=== PATIENT | male | born 1955 | race Caucasian/White ===

== ENCOUNTER 2017-06-02 07:47 | Day surgery (SDC) | payer OTHER ==
[2017-06-02] MEDS ORDERED: PROPOFOL 200 MG/20 ML VIAL IVP ONE (07:55)
[2017-06-02] MEDS ORDERED: NS 500 ML IV ONE (07:55)
[2017-06-02] MEDS ORDERED: BENZOCAINE UNIT DOSE SPRAY HURRICAINE MM ONE (07:55)
[2017-06-02] MEDS ORDERED: fentaNYL 100 MCG/2 ML INJ IVP ONE (07:55)
[2017-06-02] MEDS ORDERED: MIDAZOLAM 2 MG/2 ML VIAL IVP ONE (07:55)
--- NOTE | 2017-06-02 08:09 | CPEKG ---
Heart Rate: 99 RR Interval: 606 QRSD Interval: 88 QT Interval: 384 QTC Interval: 493 QRS [place]: 69 T Wave [place]: 30 EKG Severity - ABNORMAL ECG - EKG Impression: ATRIAL FIBRILLATION, V-RATE 68-146 EKG Impression: BORDERLINE PROLONGED QT INTERVAL Electronically Signed By: Merlin Parra 02-Jun-2017 14:50:37
[2017-06-02 08:33] LABS: INR 1.34 (0.83-1.16); PROTIME(PATIENT) 16.6 SEC (12.0-15.0)
[2017-06-02 08:49] LABS: ANION GAP 13 mEq/L (8-16); CALCIUM 9.3 mg/dL (8.5-10.4); CARBON DIOXIDE 22 mEq/l (22-31); CHLORIDE 107 mEq/L (97-110); CREATININE 1.1 mg/dL (0.7-1.3); GLOMERULAR FILTRATION RATE > 60; GLUCOSE 123 mg/dL (70-100); MAGNESIUM 1.8 mg/dL (1.6-2.3); POTASSIUM 4.6 mEq/L (3.5-5.2); SODIUM 142 mEq/L (134-144)
--- NOTE | 2017-06-02 08:49 | PDANEPAE ---
ANE History of Present Illness 62 year old male w/ PMHx of HTN, pre-diabetes (on Metformin), obesity, JACOB ( utilizes oral appliance), GERD (on PPI) with recently diagnosed paroxysmal atrial fibrillation presents for ELISEO w/ cardioversion. ANE Past Medical History - Cardiovascular History Hx Hypertension: Yes Hx Arrhythmias: Yes Hx Chest Pain: No Hx Coronary Artery / Peripheral Vascular Disease: No Hx CHF / Valvular Disease: Yes Hx Palpitations: No Cardiovascular History Comment: Paroxysmal atrial fibrillation, moderate mitral regurgitation, HTN - Pulmonary History Hx COPD: No Hx Asthma/Reactive Airway Disease: No Hx Recent Upper Respiratory Infection: No Hx Oxygen in Use at Home: No Hx Sleep Apnea: Yes Pulmonary History Comment: Has JACOB and utilizes an oral appliance. Patient's bed partner reports patient still with apnea. - Neurologic History Hx Cerebrovascular Accident: No Hx Seizures: No Hx Dementia: No - Endocrine History Hx Diabetes: No Hypothyroid: No Hyperthyroid: No Obesity: yes Endocrine History Comment: Patient with pre-diabetes - Renal History Renal History Comment: History of renal stones s/p recent lithotripsy. - Liver History Hx Hepatic Disorders: No - Neurological & Psychiatric Hx Hx Neurological and Psychiatric Disorders: No - GI History GERD: moderate (Known GERD treated with PPI) - Chronic Pain History Chronic Pain: No ANE Review of Systems - Exercise capacity Exercise capacity: >=4 METS ANE Patient History - Allergies Allergies/Adverse Reactions: No Known Allergies Allergy (Unverified 06/02/17 07:52) - Home Medications Home medications: home medication list seen and reviewed - NPO status NPO Status: no food or drink >8 hours - Anes Hx Anes Hx: no prior problems - Smoking Hx Smoking Status: Never smoked - Alcohol Use Alcohol Use: Rarely - Family Anes Hx Family Anes Hx: none, neg - N/A ANE Labs/Vital Signs - Labs Result Diagrams: 06/02/17 08:15 - Vital Signs Vital Signs: reviewed preoperatively; see RN documention for details Height: 182.88 cm Weight: 120.202 kg ANE Physical Exam - Airway Neck exam: FROM Mallampati Score: Class 2 Mouth exam: poor dentition Mouth image: 1 - #10 is an implant. Many inferior teeth missing. 2 - Missing - Pulmonary Pulmonary: no respiratory distress - Cardiovascular Cardiovascular: irregularly irregular - ASA Status ASA Status: III ANE Anesthesia Plan Anesthesia Plan: GA with mask
[2017-06-02] MEDS ORDERED: ENOXAPARIN 120 MG/0.8 ML SYR SC ONE (09:45)
[2017-06-02] MEDS ORDERED: LOSARTAN POTASSIUM 50 MG TAB PO ONE (09:45)
[2017-06-02] MEDS ORDERED: CARVEDILOL 6.25 MG TAB PO ONE (09:45)
[2017-06-02] MEDS ORDERED: PROPOFOL 200 MG/20 ML VIAL ONE (14:04)
[2017-06-02] MEDS ORDERED: ATROPINE SULFATE 1 MG/10 ML SYR ONE (14:07)
--- NOTE | 2017-06-02 14:38 | CPEKG ---
Heart Rate: 55 RR Interval: 1091 P-R Interval: 156 QRSD Interval: 92 QT Interval: 448 QTC Interval: 429 P [place]: 54 QRS [place]: 54 T Wave [place]: 70 EKG Severity - OTHERWISE NORMAL ECG - EKG Impression: SINUS RHYTHM EKG Impression: ATRIAL PREMATURE COMPLEX EKG Impression: NORMAL SINUS RHYTHM HAS REPLACED ATRIAL FIBRILLATION NOTED ON PRIOR ECG Electronically Signed By: Merlin Parra 02-Jun-2017 14:51:00
--- NOTE | 2017-06-02 14:41 | POSTANESTH ---
Post Anesthetic Evaluation Cardiovascular Status: Normal, Stable Respiratory Status: Normal, Stable Level of Consciousness/Mental Status: Can Participate in Eval Pain Control: Adequate, Prn Tx Ordered Nausea/Vomiting Control: Adequate, Prn Tx Ordered Complications Possibly Related to Anesthesia: None Noted
--- NOTE | 2017-06-02 15:41 | PDTEE1 ---
ELISEO Cardioversion Procedure Procedure: Electrical Cardioversion, Transesophageal Echo Indications: Atrial Fibrillation Consent: Signed and in Chart Anticoagulation: Xarelto Procedural Details: Patient presented to [facility] outpatient today for possible ELISEO with cardioversion. There was some confusion about Xarelto therapy, and about 36 hours ago, this therapy was stopped. Given this detail, and the pending need for ELISEO with possible cardioversion, Dr. Jatinder De La Rosa dosed the patient with weight appropriate Lovenox therapy, and rescheduled the patient in the early afternoon. Consents were resigned by myself for procedures (ELISEO with possible cardioversion ). Risks and benefits of the procedures were discussed with patient and . I also discussed that if there was any suspicious for thrombus, the cardioversion would not be performed. Patient was dosed with hurricaine spray for local anesthetic and the ELISEO probe was placed without difficulty with standard views obtained. Preliminary report: low normal LVEF (50%) with borderline global hypokinesis. Severe biatrial dilation was noted without "smoke" noted No thrombus to the left atrial appendage Moderate to severe mitral regurgitation Moderate tricuspid regurgitation Grossly normal aortic (trileaflet) and pulmonic valves Given the absence of thrombus, we opted to proceed with cardioversion A single shock (synchronized) with 200J was given with successful conversion from atrial fibrillation to normal sinus rhythm. No complications were appreciated. The patient tolerated the procedure well. I spoke with the patient's about need for follow up ECG and further discussion about mitral and tricuspid valve pathology Synchronized cardioversion attempt #1: 200J Results: Normal sinus rhythm Conclusions: Successful ELISEO Cardioversion Conclusion Comment: There is pathology to the mitral and tricuspid valves that need to be reassessed in the outpatient setting. Further discussion about possible surgical intervention to these valves is needed.
== END 2017-06-02 15:19 | disposition home or self-care (01) ==
LOC: FCATH 07:47
PROVIDERS: ATTEND Internal Medicine Cardiovascular Disease
PROC: 5A2204Z Restoration of Cardiac Rhythm, Single (ICD-10-PCS; principal; 2017-06-02)
PROC: B246ZZ4 Ultrasonography of Right and Left Heart, Transesophageal (ICD-10-PCS; principal; 2017-06-02)
DX: I48.0 Paroxysmal atrial fibrillation (principal); I34.0 Nonrheumatic mitral (valve) insufficiency; I36.1 Nonrheumatic tricuspid (valve) insufficiency; I10 Essential (primary) hypertension; G47.33 Obstructive sleep apnea (adult) (pediatric); R73.03 Prediabetes; E66.9 Obesity, unspecified; K21.9 Gastro-esophageal reflux disease without esophagitis; Z87.442 Personal history of urinary calculi; Z80.42 Family history of malignant neoplasm of prostate; Z68.35 Body mass index [BMI] 35.0-35.9, adult
CPT/HCPCS: J0461; J1650; J2250; J2704

== ENCOUNTER 2018-02-04 08:28 | Day surgery (SDC) | payer OTHER ==
[2018-02-04] MEDS ORDERED: ATROPINE SULFATE 1 MG/10 ML SYR IVP ONE (08:32)
[2018-02-04] MEDS ORDERED: NS 1,000 ML IV ONE (08:32)
--- NOTE | 2018-02-04 08:46 | CPEKG ---
Heart Rate: 92 RR Interval: 652 QRSD Interval: 94 QT Interval: 392 QTC Interval: 485 QRS [place]: 61 T Wave [place]: -58 EKG Severity - ABNORMAL ECG - EKG Impression: ATRIAL FIBRILLATION, V-RATE 69-134 EKG Impression: BORDERLINE PROLONGED QT INTERVAL Electronically Signed By: Georgiana Ayers 04-Feb-2018 12:27:54
[2018-02-04] MEDS ORDERED: PROPOFOL 200 MG/20 ML VIAL ONE (09:36)
[2018-02-04] MEDS ORDERED: LIDOCAINE 2% 100 MG/5 ML SYR ONE (09:36)
--- NOTE | 2018-02-04 09:42 | PDANEPAE ---
ANE Past Medical History - Cardiovascular History Hx Hypertension: Yes Hx Arrhythmias: Yes Hx Chest Pain: No Hx Coronary Artery / Peripheral Vascular Disease: No Hx CHF / Valvular Disease: Yes Hx Palpitations: No Cardiovascular History Comment: Paroxysmal atrial fibrillation, moderate mitral regurgitation, HTN - Pulmonary History Hx COPD: No Hx Asthma/Reactive Airway Disease: No Hx Recent Upper Respiratory Infection: No Hx Oxygen in Use at Home: No Hx Sleep Apnea: Yes Pulmonary History Comment: Has JACOB and utilizes an oral appliance. Patient's bed partner reports patient still with apnea. - Neurologic History Hx Cerebrovascular Accident: No Hx Seizures: No Hx Dementia: No - Endocrine History Hx Diabetes: No Endocrine History Comment: Patient with pre-diabetes - Renal History Renal History Comment: History of renal stones s/p recent lithotripsy. - Liver History Hx Hepatic Disorders: No - Neurological & Psychiatric Hx Hx Neurological and Psychiatric Disorders: No - Chronic Pain History Chronic Pain: No ANE Review of Systems Review of Systems: ANE Patient History - Allergies Allergies/Adverse Reactions: No Known Allergies Allergy (Verified 02/04/18 08:56) - Home Medications Home Medications: Allopurinol 100 mg PO 06/02/17 [Last Taken 02/04/18 07:00] Coreg 6.25 mg PO BID 06/02/17 [Last Taken 02/04/18 07:00] IRON 65 mg PO DAILY 06/02/17 [Last Taken 02/03/18 21:00] Losartan Potassium 50 mg PO DAILY 06/02/17 [Last Taken 02/03/18 21:00] Metformin HCl 850 mg PO BID 06/02/17 [Last Taken 02/03/18 21:00] Multivitamin 1 PO DAILY 06/02/17 [Last Taken 02/04/18 07:00] Pantoprazole Sodium 40 mg PO DAILY 06/02/17 [Last Taken 02/03/18 07:00] Tamsulosin HCl 0.4 mg PO DAILY 06/02/17 [Last Taken 02/03/18 21:00] Vitamin D3 1,000 units PO DAILY 06/02/17 [Last Taken 02/03/18 21:00] Xarelto 10 mg PO DAILY 06/02/17 [Last Taken 02/04/18 07:00] Benzonatate 200 mg PO TID 02/04/18 [Last Taken 02/04/18 07:00] Hydrochlorothiazide 12.5 mg PO 02/04/18 [Last Taken 02/03/18 08:00] Potassium Citrate [Potassium Citrate ER] 15 meq PO BID 02/04/18 [Last Taken 07:00] - Smoking Hx Smoking Status: Never smoked ANE Labs/Vital Signs - Vital Signs Height: 185 cm Weight: 115 kg ANE Physical Exam - Airway Neck exam: FROM Mallampati Score: Class 3 Mouth exam: normal dental/mouth exam - Pulmonary Pulmonary: no respiratory distress - Cardiovascular Cardiovascular: regular rate and rhythym - ASA Status ASA Status: III ANE Anesthesia Plan Total IV Anesthesia: Yes
[2018-02-04] MEDS ORDERED: PROPOFOL/EMULSION 500 MG/50 ML BOTTLE IV ONE (09:46)
--- NOTE | 2018-02-04 09:49 | PDHPUP ---
History & Physical Update H&P update statement: This history and physical update is based on an assessment of the patient which was completed after admission or registration (within 24 hours), but prior to the surgery/procedure. H&P update: H&P reviewed & patient examined, no change in patient's condition since H&P completed
--- NOTE | 2018-02-04 10:21 | PDTEE1 ---
ELISEO Cardioversion Procedure Procedure: electrical cardioversion Indications: atrial fibrillation Consent: signed and in chart Anticoagulation: xarelto Procedural Details: Pads were placed in anterior-posterior position. ELISEO probe was advanced and standard images obtained. There is no evidence of left atrial or left atrial appendage thrombus. Synchronized cardioversion attempt #1: 200J Results: normal sinus rhythm Conclusions: successful ELISEO cardioversion
--- NOTE | 2018-02-04 10:29 | POSTANESTH ---
Post Anesthetic Evaluation Cardiovascular Status: Normal, Stable Respiratory Status: Similar to Pre-op Cond. Level of Consciousness/Mental Status: Mildly Sleepy, Arousable Pain Control: Adequate, Prn Tx Ordered Nausea/Vomiting Control: Adequate, Prn Tx Ordered Complications Possibly Related to Anesthesia: None Noted
--- NOTE | 2018-02-04 10:38 | CPEKG ---
Heart Rate: 70 RR Interval: 857 P-R Interval: 184 QRSD Interval: 96 QT Interval: 404 QTC Interval: 436 P [place]: 62 QRS [place]: 51 T Wave [place]: 31 EKG Severity - NORMAL ECG - EKG Impression: SINUS RHYTHM Electronically Signed By: Georgiana Ayers 04-Feb-2018 12:27:30
--- NOTE | 2018-02-04 15:40 | ECHO ---
[email or web address] [id number] Main: [phone] Fax: Transesophageal Echocardiography Name: ARIK WARREN MR#: [id number] Study Date: 02/04/2018 Study Time: 09:55 AM Date of : 1955 Age: 62 year(s) Height: 185 cm (72.83 in.) Weight: 114 kg (251.32 lb.) BSA: 2.37 m2 Gender: Male Examination: ELISEO Indication: Pre Cardioversion Image Quality: Contrast: Requested by: Jeff De La Rosa Heart Rate: Rhythm: Atrial fibrillation BP: 120 mmHg/100 mmHg Procedure Staff Die Developer: Jairon Reese RDCS Reading Physician: Jeff De La Rosa MD Requesting Provider: ELISEO Exam Details Conclusions: Normal global systolic LV function. The ejection fraction is visually estimated to be 55 %. No regional wall motion abnormality. The rhythm is atrial fibrillation.. The left atrium is moderately dilated. There is bi-directional bowing that change with respirations. An agitated bubble study was performed with no evidence of shunting.. The right atrium is mildly to moderately dilated. There is bileaflet mitral valve prolapse. There is a degenerative appearance to the mitral valve leaflets. There is moderate to severe mitral regurgitation with multiple jets noted.. Mild to moderate tricuspid valve regurgitation. Proceeded with successful elective DC cardioversion.. Measurements: Chambers Valvular Assessment AV/MV Valvular Assessment TV/PV Normal Normal Normal Name Value Range Name Value Range Name Value Range Visual EF: 55 % Additional Measurements: Chambers Name Value Patient: ARIK WARREN Study Date: 02/04/2018 Page 1 of 2 09:55 AM LADs Lon.5 cm LA Area: 28.3 cm2 LA Volume: 99 ml LA Volume Index: 41.8 ml/m2 Findings: Left Ventricle: Normal global systolic LV function. The ejection fraction is visually estimated to be 55 %. No regional wall motion abnormality. The rhythm is atrial fibrillation.. Right Ventricle: Normal size right ventricle. Normal RV function. Left Atrium: The left atrium is moderately dilated. There is bi-directional bowing that change with respirations. An agitated bubble study was performed with no evidence of shunting.. Right Atrium: The right atrium is mildly to moderately dilated. Mitral Valve: There is bileaflet mitral valve prolapse. There is a degenerative appearance to the mitral valve leaflets. There is moderate to severe mitral regurgitation with multiple jets noted.. Aortic Valve: The aortic valve is tri-leaflet. The aortic valve is normal in appearance and function. Tricuspid Valve: Mild to moderate tricuspid valve regurgitation. Pulmonic Valve: Trivial to mild pulmonic valve regurgitation. Aorta: The aorta is normal. Pericardium: No pericardial effusion. Exam Comments: Proceeded with successful elective DC cardioversion.. l1n (No Signature Object) Patient: ARIK WARREN Study Date: 02/04/2018 Page 2 of 2 09:55 AM [id number]
== END 2018-02-04 12:58 | disposition home or self-care (01) ==
LOC: FCATH 08:28
PROVIDERS: ATTEND Internal Medicine Cardiovascular Disease
PROC: 5A2204Z Restoration of Cardiac Rhythm, Single (ICD-10-PCS; principal; 2018-02-04)
PROC: B245ZZ4 Ultrasonography of Left Heart, Transesophageal (ICD-10-PCS; principal; 2018-02-04)
DX: I48.0 Paroxysmal atrial fibrillation (principal); R55 Syncope and collapse; R42 Dizziness and giddiness; R94.31 Abnormal electrocardiogram [ECG] [EKG]; I34.0 Nonrheumatic mitral (valve) insufficiency; I36.1 Nonrheumatic tricuspid (valve) insufficiency; I10 Essential (primary) hypertension; E78.5 Hyperlipidemia, unspecified; R73.03 Prediabetes; G47.33 Obstructive sleep apnea (adult) (pediatric); K21.9 Gastro-esophageal reflux disease without esophagitis; Z79.01 Long term (current) use of anticoagulants; Z87.442 Personal history of urinary calculi
CPT/HCPCS: J0461; J2001; J2704

== ENCOUNTER 2018-02-25 07:47 | Inpatient (IN) | payer OTHER ==
[2018-02-28] MEDS ORDERED: NOREPINEPHRINE BITARTRATE 16 MG in NS 250 ML IV ONE (06:11)
[2018-02-28] MEDS ORDERED: SODIUM BICARBONATE 20 MEQ, LIDOCAINE 1% 10 ML in NORMOSOL-R 1,000 ML MISC ONE (06:11)
[2018-02-28] MEDS ORDERED: AMINOCAPROIC ACID 5 GM/20 ML VIAL IV ONE (06:11)
[2018-02-28] MEDS ORDERED: INSULIN REGULAR HUMAN 100 UNIT in NS 100 ML IV ONE (06:11)
[2018-02-28] MEDS ORDERED: PHENYLEPHRINE HCL 50 MG in NS 250 ML IV ONE (06:11)
[2018-02-28] MEDS ORDERED: MANNITOL 25% 12.5 GM/50 ML VIAL IVP ONE (06:37)
[2018-02-28] MEDS ORDERED: ceFAZolin 2 GM/SWFI 2 GM/20 ML SYR IVP ONE (09:06)
[2018-02-28] MEDS ORDERED: CITRATE DEXTROSE SOLN 500 ML BAG MISC ONE (09:06)
[2018-02-28] MEDS ORDERED: MUPIROCIN 2% 22 GM OINT NS ONE (09:06)
[2018-02-28] MEDS ORDERED: niCARdipine/NACL 200 ML IV ONE (09:06)
[2018-02-28] MEDS ORDERED: LR 1,000 ML IV ONE (09:12)
[2018-02-28] MEDS ORDERED: PROTAMINE SULFATE 50 MG/5 ML VIAL IVP ONE ×2 (09:20→13:44)
[2018-02-28] MEDS ORDERED: CALCIUM CHLORIDE 1 GM/10 ML INJ ONE ×2 (09:21→09:23)
[2018-02-28] MEDS ORDERED: HEPARIN 10,000 UNIT/10 ML MDV (1,000 UNIT/ML) ONE ×2 (09:21→09:23)
[2018-02-28] MEDS ORDERED: NA BICARBONATE 50 MEQ/50 ML VIAL ONE (09:21)
[2018-02-28] MEDS ORDERED: DOPamine/DEXTROSE/250 ML BAG IV ONE (09:21)
[2018-02-28] MEDS ORDERED: MILRINONE/DEXTROSE/100 ML BAG IV ONE (09:21)
[2018-02-28] MEDS ORDERED: niCARdipine/NACL/200 ML BAG IV ONE (09:22)
[2018-02-28] MEDS ORDERED: ADENOSINE 6 MG/2 ML VIAL ONE (09:22)
[2018-02-28] MEDS ORDERED: AMIODARONE HCL 150 MG/3 ML VIAL ONE ×2 (09:22→09:23)
[2018-02-28] MEDS ORDERED: ceFAZolin 1 GM VIAL ONE (09:22)
[2018-02-28] MEDS ORDERED: CITRATE DEXTROSE SOLN 500 ML BAG ONE (09:23)
[2018-02-28] MEDS ORDERED: ALBUMIN 5% 250 ML BOTTLE IV ONE (09:23)
[2018-02-28] MEDS ORDERED: LIDOCAINE 2% 100 MG/5 ML SYR ONE (09:23)
[2018-02-28] MEDS ORDERED: MAGNESIUM SULFATE 1 GM/2 ML VIAL ONE (09:24)
[2018-02-28] MEDS ORDERED: methylPREDNISolone SOD SUCC 1 GM/8 ML VIAL ONE (09:24)
[2018-02-28] MEDS ORDERED: MIDAZOLAM 2 MG/2 ML VIAL IVP ONE (11:26)
--- NOTE | 2018-02-28 11:26 | PDANEPAE ---
ANE History of Present Illness mvr,tvr, maze ANE Past Medical History - Cardiovascular History Hx Hypertension: Yes Hx Arrhythmias: Yes Hx Chest Pain: No Hx Coronary Artery / Peripheral Vascular Disease: Yes Hx CHF / Valvular Disease: Yes Hx Palpitations: No Cardiovascular History Comment: CATH 02/25/18. PAF - FOUND IN PREOP WITH LITHOTRIPSY IN 2017. HTN. CAD. MULTIVALVULAR INSUFF. CARDIOVERSION 05/2017 AND 02/04/18 - Pulmonary History Hx COPD: No Hx Asthma/Reactive Airway Disease: No Hx Recent Upper Respiratory Infection: No Hx Oxygen in Use at Home: No Hx Sleep Apnea: Yes Sleep Apnea Screening Result - Last Documented: Positive Pulmonary History Comment: JACOB POSITIVE USES CPAP- INSTRUCTED PT TO BRING DOS - Neurologic History Hx Cerebrovascular Accident: No Hx Seizures: No Hx Dementia: No - Endocrine History Hx Diabetes: Yes Endocrine History Comment: TYPE 2- METFORMIN - Renal History Hx Renal Disorders: Yes Renal History Comment: HX OF KIDNEY STONES WITH LITHOTRIPSY X2 - Liver History Hx Hepatic Disorders: No - Neurological & Psychiatric Hx Hx Neurological and Psychiatric Disorders: No - Cancer History Hx Cancer: No - Congenital Disorder History Hx Congenital Disorders: No - GI History Hx Gastrointestinal Disorders: Yes Gastrointestinal History Comment: GERD - Other Health History Other Health History: NONE - Chronic Pain History Chronic Pain: No - Surgical History Prior Surgeries: CATH 02/25/18. CARDIOVERSION 02/04/18 AND 05/2017. RIGHT HIP RESURFACING 2007. LITHOTRIPSY 2006 AND 2016. TONSILLECTOMY 1957 ANE Review of Systems Review of Systems: - Exercise capacity METS (RN): 3 METS ANE Patient History - Allergies Allergies/Adverse Reactions: No Known Allergies Allergy (Verified 02/25/18 12:36) - Home Medications Home Medications: Allopurinol [Allopurinol 100 MG (*)] 100 mg PO DAILY 06/02/17 [Last Taken 08:00] Carvedilol [Coreg (*)] 6.25 mg PO BIDMEAL 06/02/17 [Last Taken 02/27/18 20:00] Cholecalciferol Vit D3 [Vitamin D3 2000 units tab (OTC)] 2,000 units PO DAILY [Last Taken 02/27/18 20:00] Ferrous Sulfate [Ferrous Sulf 325 MG (*)] 325 mg PO DAILY 06/02/17 [Last Taken 02/27/18 20:00] Losartan Potassium [Cozaar 50 mg (*)] 50 mg PO DAILY 06/02/17 [Last Taken 20:00] Multivitamins [Multivitamin (*)] 1 each PO DAILY 06/02/17 [Last Taken 02/27/18 08:00] Pantoprazole Sodium [Protonix 40mg (*)] 40 mg PO DAILY 06/02/17 [Last Taken 04/11 08:00] Rivaroxaban [Xarelto 10mg (*)] 10 mg PO DAILY 06/02/17 [Last Taken 02/22/18] metFORMIN HCL [Glucophage 850 mg (*)] 850 mg PO BIDMEAL 06/02/17 [Last Taken 11/11] Potassium Citrate [Potassium Citrate ER] 15 meq PO BIDMEAL 02/04/18 [Last Taken 02/27/18 20:00] Hydrochlorothiazide [HCTZ (*)] 12.5 mg PO DAILY 02/23/18 [Last Taken 02/24/18 12 :00] Sildenafil Citrate [Viagra] 100 mg PO DAILY PRN 02/23/18 [Last Taken 02/04/18 22 :00] Aspirin [Aspirin 325 mg (*)] 325 mg PO DAILY 02/28/18 [Last Taken 02/27/18 08:00 ] - NPO status NPO Status: no food or drink >8 hours NPO Since - Liquids (Date): 02/27/18 NPO Since - Liquids (Time): 22:00 NPO Since - Solids (Date): 02/27/18 NPO Since - Solids (Time): 22:00 - Smoking Hx Smoking Status: Never smoked - Family Anes Hx Family Hx Anesthesia Complications: NONE ANE Labs/Vital Signs - Vital Signs Blood Pressure: 188/109 Heart Rate: 66 Respiratory Rate: 16 O2 Sat (%): 95 Height: 184.5 cm Weight: 117.9 kg ANE Physical Exam - Airway Mallampati Score: Class 2 Mouth exam: normal dental/mouth exam - Pulmonary Pulmonary: no respiratory distress - Cardiovascular Cardiovascular: regular rate and rhythym - ASA Status ASA Status: III ANE Anesthesia Plan Anesthesia Plan: general endotracheal anesthesia Lines/Monitors: arterial line, central line, ELISEO
[2018-02-28] MEDS ORDERED: LABETALOL HCL 5 MG/ML 20 ML MDV ONE (11:38)
[2018-02-28] MEDS ORDERED: ROCURONIUM 100 MG/10 ML VIAL ONE (11:38)
[2018-02-28] MEDS ORDERED: LIDOCAINE 2% 5 ML SDV ONE (11:38)
[2018-02-28] MEDS ORDERED: SUCCINYLCHOLINE CHLORIDE 200 MG/10 ML SYR IVP ONE (11:38)
[2018-02-28] MEDS ORDERED: fentaNYL 250 MCG/5 ML INJ ONE ×2 (11:39)
[2018-02-28] MEDS ORDERED: PROPOFOL 200 MG/20 ML VIAL ONE (11:39)
[2018-02-28] MEDS ORDERED: MIDAZOLAM 2 MG/2 ML VIAL ONE ×2 (11:47→14:58)
[2018-02-28] MEDS ORDERED: NITROGLYCERIN 50 MG/10 ML SDV IV ONE (12:33)
[2018-02-28] MEDS ORDERED: MINERAL OIL 10 ML VIAL ONE (14:08)
[2018-02-28] MEDS ORDERED: ROCURONIUM 50 MG/5 ML VIAL ONE (15:09)
[2018-02-28] MEDS ORDERED: MAGNESIUM SULF 2 GM/WATER 50 ML BAG IV ONE (15:31)
[2018-02-28] MEDS ORDERED: SUGAMMADEX SODIUM 200 MG/2 ML VIAL IVP ONE (15:53)
[2018-02-28] MEDS ORDERED: HYDROmorphONE/DILAUDID 2 MG/ML INJ ONE (15:56)
[2018-02-28] MEDS ORDERED: DEXMEDETOMIDINE HCL 400 MCG in NS 100 ML IV SCH (16:00)
[2018-02-28] MEDS ORDERED: ONDANSETRON 4 MG/2 ML VIAL IVP PRN (16:05)
[2018-02-28] MEDS ORDERED: LACTULOSE 20 GM/30 ML UDCUP PO PRN (16:05)
[2018-02-28] MEDS ORDERED: D50W 25 GM/50 ML SYR IVP PRN (16:05)
[2018-02-28] MEDS ORDERED: BISACODYL 10 MG SUPP PR PRN (16:05)
[2018-02-28] MEDS ORDERED: MAGNESIUM HYDROXIDE 30 ML UDCUP PO PRN (16:05)
[2018-02-28] MEDS ORDERED: PANTOPRAZOLE SODIUM 40 MG VIAL IVP ONE (16:05)
[2018-02-28] MEDS ORDERED: ACETAMINOPHEN 650 MG SUPP PR PRN (16:05)
[2018-02-28] MEDS ORDERED: POTASSIUM Cl (KCl) 50 ML IV PRN (16:05)
[2018-02-28] MEDS ORDERED: CEPACOL LOZENGE PO PRN (16:05)
[2018-02-28] MEDS ORDERED: MAGNESIUM SULF 2 GM/WATER 50 ML IV ONE (16:05)
[2018-02-28] MEDS ORDERED: MEPERIDINE 25 MG/0.5 ML AMP IVP PRN (16:05)
[2018-02-28] MEDS ORDERED: SODIUM CL NASAL 45 ML BTL EACHNARE PRN (16:05)
[2018-02-28] MEDS ORDERED: METOCLOPRAMIDE 10 MG/2 ML VIAL IVP PRN (16:05)
[2018-02-28] MEDS ORDERED: ACETAMINOPHEN 325 MG TAB PO PRN (16:05)
[2018-02-28] MEDS ORDERED: HYDROCODONE/APAP 5/325 TAB PO PRN (16:05)
[2018-02-28] MEDS ORDERED: ONDANSETRON DISINTEGRATING 4 MG TAB PO PRN (16:05)
[2018-02-28] MEDS ORDERED: fentaNYL 100 MCG/2 ML INJ IVP PRN ×2 (16:05→16:26)
[2018-02-28] MEDS ORDERED: POLYETHYLENE GLYCOL 3350 17 GM PKT PO PRN (16:05)
[2018-02-28] MEDS ORDERED: NS 1,000 ML IV SCH (16:15)
[2018-02-28] MEDS ORDERED: ALBUTEROL 3 ML DEYVIAL IH PRN (16:26)
[2018-02-28] MEDS ORDERED: NALOXONE HCL 0.4 MG/ML INJ IVP PRN (16:26)
[2018-02-28] MEDS ORDERED: INSULIN REGULAR HUMAN 100 UNIT in NS 100 ML IV SCH (16:30)
--- NOTE | 2018-02-28 16:40 | GOP ---
[f rep st] OPERATIVE REPORT DATE OF OPERATION: 02/28/2018 SURGEON: Lul Zarate DO TACK MAKER: Beny Molina PA-C ANESTHESIOLOGIST: Dr. Gama. PREOPERATIVE DIAGNOSIS: Long-standing persistent atrial fibrillation, and moderate to severe mitral insufficiency with moderate tricuspid insufficiency. POSTOPERATIVE DIAGNOSIS: Long-standing persistent atrial fibrillation, and moderate to severe mitral insufficiency with moderate tricuspid insufficiency. PROCEDURE PERFORMED: 1. Mitral ring annuloplasty with a #32 Physio annuloplasty ring. 2. Tricuspid valve annuloplasty with a #32 David annuloplasty ring. 3. Complete left and right-sided Kent-Maze IV with sensing and testing. FINDINGS: Patient was noted to have longstanding persistent atrial fibrillation. Echo confirmed mul tiple jets of mitral insufficiency trending toward severe with a myxomatous appearing valve. He is a lso known to have marked tricuspid annular dilatation with at least moderate tricuspid insufficiency. He was referred for surgical intervention. DESCRIPTION OF PROCEDURE: He was consented for surgery, brought to the operating room, intubated, mo nitoring lines were placed. He was prepped and draped in sterile classical manner. Sternotomy was p erformed. He was heparinized and cannulated. We then performed sensing and testing for entrance and exit block in both pulmonary veins, which did not exist. We then encircled the right pulmonary vein s with a radiofrequency clamp and multiple ablations were performed with 3 lesion sets ultimately hav ing less than 5 seconds in duration for conductance in all 3. We then tested the right side, which w as free of entrance or exit, with block confirmed. We then initiated cardiopulmonary bypass and performed the same, encircling the left pulmonary antrum , performing multiple lesion sets after testing confirmed that there was no evidence of entrance or e xit block. Upon completion, we tested them again, and there was no evidence of conduction either way with both entrance and exit block confirmed. We then marked the terminus of the circumflex and the right coronary artery and the coronary sinus. We then exposed the mitral valve through the right superior pulmonary vein, extending the atriotomy i ncisions almost all the way over to the mitral anulus inferiorly, and up toward the left superior pul monary vein on the left. We then completed the superior pulmonary vein roof lesion with 3 minutes of cryo. We then performed the isthmus lesion with 2 minutes of cryo, and then the coronary sinus over lapping the isthmus lesion for 2 minutes, where it had been previously marked, avoiding the coronary arteries. We then performed the floor lesion with radiofrequency. We then inspected the mitral valv e and found it to have significant annular dilatation with a calcified nodule on the tip of P2. We t hen performed circumferential annuloplasty sutures, which were then sized to a 32 Physio ring which w as secured in place without difficulty. Testing the ventricle revealed no regurgitation. The left a trium was then closed. We then secured caval tapes and performed a right vertical atriotomy and then performed a free wall a blation from that vertical atriotomy with radiofrequency, and performed superior and inferior vena ca teri lines with radiofrequency. We then used cryo to complete the tricuspid isthmus lesion at 1 o'rosa ck. We then put circumferential annuloplasty suture rings on the tricuspid anulus. He was sized for a 32 David ring. This was secured in place with Cor-Knots. Atriotomy was closed. The patient was easily rewarmed, weaned from bypass in Trendelenburg to reverse any air. Heparin was reversed with protamine. The cannulas were removed and oversewn. 4 pacing wires and 2 pleural, 1 m ediastinal drains were placed. The thymic fat and pericardium were closed in standard fashion. The sternum was closed. The patient's echo revealed no mitral insufficiency or stenosis. No evidence of ALEJANDRO or outflow tract obstruction. There was trace tricuspid insufficiency with good LV function. The patient was returned to ICU in stable condition. /[id number]/MODL
--- NOTE | 2018-02-28 16:58 | CPEKG ---
Heart Rate: 66 RR Interval: 909 P-R Interval: 180 QRSD Interval: 108 QT Interval: 420 QTC Interval: 441 P Williston: 94 QRS Williston: 95 T Wave Williston: -31 EKG Severity - ABNORMAL ECG - EKG Impression: SINUS RHYTHM EKG Impression: ATRIAL PREMATURE COMPLEX EKG Impression: ABNORMAL T, CONSIDER ISCHEMIA, INFERIOR LEADS EKG Impression: T-wave inversions more prominent than on February 25. Electronically Signed By: Aden Haywood 01-Mar-2018 09:43:41
[2018-02-28] MEDS ORDERED: niCARdipine/NACL 200 ML IV SCH (17:00)
[2018-02-28] MEDS: ceFAZolin 2 GM/SWFI 2 GM/20 ML SYR IVP SCH (19:43)
[2018-02-28] MEDS: MUPIROCIN 2% 22 GM OINT NS SCH (22:00)
[2018-02-28] MEDS ORDERED: ceFAZolin 2 GM/DEXTROSE 100 ML IV SCH (22:00)
[2018-02-28] MEDS: SENNOSIDES/DOCUSATE SODIUM TAB PO SCH (22:01)
[2018-03-01] MEDS: ALBUMIN 5% 250 ML IV PRN ×2 (00:34→06:57)
[2018-03-01] MEDS: ceFAZolin 2 GM/SWFI 2 GM/20 ML SYR IVP SCH ×3 (04:57→21:38)
[2018-03-01 05:31] LABS: PLATELET COUNT 150 10^3/uL (150-400)
[2018-03-01 05:47] LABS: INR 1.32 (0.83-1.16); PROTIME(PATIENT) 16.6 SEC (12.0-15.0)
[2018-03-01] MEDS: HEPARIN 5,000 UNIT/0.5 ML SYR SC SCH ×3 (05:49→21:23)
--- NOTE | 2018-03-01 06:22 | SOAPPROG ---
SOAP Progress Note Assessment/Plan: POD #1: MV annuloplasty with #32 Physio ring, TV annuloplasty with #32 David MC3 ring, Kent-Maze 4 Mod-severe MR and mod TR s/p MV and TV annuloplasties - DC AL/FC, CTs to bulb suction - Thromboprophylaxis as per 4 - Transfer to PCU later today Long-standing persistent atrial fibrillation s/p Kent-Maze IV - Underlying rhythm junctional - Continue A-pacing for optimized HD - BB for AF prophylaxis avoided d/t JR - Thromboprophylaxis switched from Xarelto to Coumadin with INR goal 2-3, duration as per protocol Acute blood loss anemia - Stable without the need for transfusions DM 2 (HgbA1c 7.4%) - Will transition insulin gtt to ISS with Metformin to start tomorrow Subjective: Denies pain/SOB. Objective: Vital Signs Temp Pulse Resp BP Pulse Ox 37.6 C 60 20 109/48 L 100 03/01/18 05:00 03/01/18 05:00 03/01/18 05:00 03/01/18 05:00 03/01/18 05:00 Laboratory Results 03/01/18 05:10 03/01/18 05:10 02/28/18 03/01/18 03/02/18 05:59 05:59 05:59 Intake Total 712 Output Total 1475 Balance -763 PT 16.6 SEC (12.0-15.0) H 03/01/18 05:10 INR 1.32 (0.83-1.16) H 03/01/18 05:10 Physical Exam - Physical Exam General Appearance: WD/WN, alert, no apparent distress EENT: No scleral icterus (R), No scleral icterus (L) Neck: normal inspection Respiratory: No respiratory distress Cardiac/Chest: bradycardia Abdomen: non-tender, soft, No distended Skin: normal color, warm/dry Extremities: No pedal edema Neuro/Psych: no motor/sensory deficits, alert, normal mood/affect, oriented x 3 ICD10 Worksheet Patient Problems: Problems Problem Status Onset S/P ablation of atrial fibrillation Acute S/P tricuspid valve repair Acute Status post mitral valve repair Acute Severe mitral regurgitation Acute Chronic anticoagulation Chronic Diastolic congestive heart failure, NYHA class 2 Chronic Nonobstructive atherosclerosis of coronary artery Chronic JACOB on CPAP Chronic Paroxysmal atrial fibrillation Chronic Secondary tricuspid regurgitation Chronic Type 2 diabetes mellitus Chronic
[2018-03-01] MEDS ORDERED: ASPIRIN 81 MG CHEWABLE TAB TUBE PRN (09:00)
--- NOTE | 2018-03-01 09:04 | PDMN ---
Medical Necessity Medical necessity: Patient meets inpatient criteria per PA note and [facility] S-[id number] Cardiac Valve Replacement or Repair - 5 days postop - ( CPT 17520, 05585, [id number] Medicare inpatient-only surgery.)
[2018-03-01] MEDS: SENNOSIDES/DOCUSATE SODIUM TAB PO SCH ×2 (09:28→21:25)
[2018-03-01] MEDS: ASPIRIN 81 MG CHEWABLE TAB PO SCH (09:28)
[2018-03-01] MEDS: PANTOPRAZOLE SODIUM 40 MG TAB PO SCH (09:29)
--- NOTE | 2018-03-01 09:56 | ASMTCMCOM ---
CM Note CM Note Notes: 62yr old male admitted for TVR, MVR, Afib. He has a Hx of CHF, DM, HTN, JACOB-cpap. POD#1 of valve repair and Maze. Patient lives with his . May not have discharge needs. CM to follow. Date Signed: 03/01/2018 09:55 AM Electronically Signed By:Maria Del Carmen Ram LCSW
[2018-03-01] MEDS: MUPIROCIN 2% 22 GM OINT NS SCH ×2 (11:09→21:30)
[2018-03-01] MEDS: KETOROLAC 15 MG/1 ML SDV IVP PRN ×2 (11:33→21:23)
[2018-03-01] MEDS: INSULIN LISPRO 100 UNIT/ML SC SCH ×2 (12:07→19:08)
[2018-03-01] MEDS ORDERED: traMADol 50 MG TAB PO PRN (13:29)
[2018-03-01] MEDS ORDERED: WARFARIN SODIUM 2.5 MG TAB PO ONE (16:00)
[2018-03-02] MEDS: ceFAZolin 2 GM/SWFI 2 GM/20 ML SYR IVP SCH (04:40)
[2018-03-02] MEDS: HEPARIN 5,000 UNIT/0.5 ML SYR SC SCH ×3 (06:08→21:17)
--- NOTE | 2018-03-02 07:01 | SOAPPROG ---
SOAP Progress Note Assessment/Plan: POD #2: MV annuloplasty with #32 Physio ring, TV annuloplasty with #32 Dvaid MC3 ring, Kent-Maze 4 Mod-severe MR and mod TR s/p MV and TV annuloplasties - CTs to bulb suction another day - Thromboprophylaxis as per CM 4 Long-standing persistent atrial fibrillation s/p Kent-Maze IV - Post-op JR now in SR - BB and amiodarone started for AF prophylaxis - Pacing wires to remain another day - Thromboprophylaxis switched from Xarelto to Coumadin with INR goal 2-3, duration as per protocol Acute blood loss anemia - Stable without the need for transfusions DM 2 (HgbA1c 7.4%) - Continue ISS - Metformin restarted DVT prophylaxis - SCDs/heparin SQ Disposition - Home Wednesday without services Subjective: Denies pain/SOB. Objective: Vital Signs Temp Pulse Resp BP Pulse Ox 37.2 C 76 20 133/85 H 90 L 03/02/18 05:33 03/02/18 05:33 03/02/18 05:33 03/02/18 05:33 03/02/18 05:33 Laboratory Results 03/01/18 05:10 03/01/18 11:20 03/01/18 03/02/18 03/03/18 05:59 05:59 05:59 Intake Total 712 2378 Output Total 1475 1370 Balance -763 1008 PT 16.6 SEC (12.0-15.0) H 03/01/18 05:10 INR 1.32 (0.83-1.16) H 03/01/18 05:10 Physical Exam - Physical Exam General Appearance: WD/WN, alert, no apparent distress EENT: No scleral icterus (R), No scleral icterus (L) Neck: normal inspection Respiratory: No respiratory distress Cardiac/Chest: regular rate, rhythm Abdomen: non-tender, soft, No distended Skin: normal color, warm/dry Extremities: pedal edema Neuro/Psych: no motor/sensory deficits, alert, normal mood/affect, oriented x 3 ICD10 Worksheet Patient Problems: Problems Problem Status Onset S/P ablation of atrial fibrillation Acute S/P tricuspid valve repair Acute Status post mitral valve repair Acute Severe mitral regurgitation Acute Chronic anticoagulation Chronic Diastolic congestive heart failure, NYHA class 2 Chronic Nonobstructive atherosclerosis of coronary artery Chronic JACOB on CPAP Chronic Paroxysmal atrial fibrillation Chronic Secondary tricuspid regurgitation Chronic Type 2 diabetes mellitus Chronic
[2018-03-02] MEDS ORDERED: IBUPROFEN 200 MG TAB PO PRN (07:50)
[2018-03-02] MEDS ORDERED: FUROSEMIDE 40 MG/4 ML VIAL IVP ONE (07:54)
[2018-03-02 07:56] LABS: PLATELET COUNT 111 10^3/uL (150-400)
[2018-03-02 08:02] LABS: INR 1.22 (0.83-1.16); PROTIME(PATIENT) 15.6 SEC (12.0-15.0)
[2018-03-02] MEDS: INSULIN LISPRO 100 UNIT/ML SC SCH ×3 (08:45→17:56)
[2018-03-02] MEDS: metFORMIN HCL 850 MG TAB PO SCH ×2 (08:46→17:43)
[2018-03-02] MEDS: SENNOSIDES/DOCUSATE SODIUM TAB PO SCH ×2 (08:46→21:17)
[2018-03-02] MEDS: FERROUS SULFATE 325 MG TAB PO SCH (08:47)
[2018-03-02] MEDS: CARVEDILOL 3.125 MG TAB PO SCH ×2 (08:47→17:43)
[2018-03-02] MEDS: CHOLECALCIFEROL VIT D3 2,000 UNITS TAB/CAP PO SCH (08:47)
[2018-03-02] MEDS: ASPIRIN 81 MG CHEWABLE TAB PO SCH (08:47)
[2018-03-02] MEDS: ALLOPURINOL 100 MG TAB PO SCH (08:47)
[2018-03-02] MEDS: AMIODARONE HCL 200 MG TAB PO SCH ×2 (08:47→21:17)
[2018-03-02] MEDS: PANTOPRAZOLE SODIUM 40 MG TAB PO SCH (09:03)
[2018-03-02] MEDS: MULTIVITAMINS 1 EACH TAB PO SCH (09:03)
[2018-03-02] MEDS: MUPIROCIN 2% 22 GM OINT NS SCH ×2 (09:03→21:15)
--- NOTE | 2018-03-02 15:44 | ECHO ---
[email or web address] [address] [address] Main: [phone] Fax: Transthoracic Echocardiogram Name: ARIK WARREN MR#: [id number] Study Date: 03/02/2018 Study Time: 09:55 AM Date of : 1955 Age: 62 year(s) Height: 185.4 cm (73 in.) Weight: 120.2 kg (265 lb.) BSA: 2.43 m2 Gender: Male Examination: Echo Indication: s/p MV/TV annuloplasties Image Quality: Technically Difficult Contrast: Requested by: Beny Molina BP: 161 mmHg/95 mmHg Heart Rate: Rhythm: Indication: s/p MV/TV annuloplasties Procedure Staff Coal Shooter: Rohini Lopez RDCS Reading Physician: Melina Jones MD Requesting Provider: Conclusions: Normal size left ventricle. Mild concentric LV hypertrophy. Low normal left ventricular systolic function. EF is 54 %. There is paradoxic septal motion suggestive of bundle branch block, paced cardiac rhythm, or prior cardiac surgery. Normal size right ventricle. Normal RV function. There is no mitral valve regurgitation. No mitral stenosis is present. An annuloplasty ring is noted in the mitral valve position. There is a tricuspid valve ring. No TR or TS. Compared with 02/04/2018 mitral and tricuspid valves have been repaired. Measurements: Chambers Valvular Assessment AV/MV Valvular Assessment TV/PV Normal Normal Normal Name Value Range Name Value Range Name Value Range IVSd (2D): 1.2 cm (0.6 cm-1.1 AV meanP mmHg ( - ) TV Vmax: 1.31 m/s (0.3 m/s-0.7 cm) DON (VTI): 1.3 cm ( - ) m/s) LVDd (2D): 4.4 cm (4.2 cm-5.9 MV E Vmax: 1.69 m/s ( - ) TV Vmean: 0.84 m/s ( - ) cm) MV A Vmax: 0.45 m/s ( - ) TV PGmax: 7 mmHg ( - ) LVDs (2D): 2.7 cm (2.1 cm-4 MV E/A: 3.76 ( - ) TV PGmean: 3 mmHg ( - ) cm) MV meanP mmHg ( - ) TV VTI: 35.60 cm ( - ) LVPWd (2D): 1.2 cm (0.6 cm-1 cm) MV PHT: 0.059 s ( - ) LVOTd 1.7 cm 1.7 cm mm MVA (Vmax): 1.0 m/s ( - ) LVEF (BP): 54 % (>=55 %) MVA (PHT): 3.7 s ( - ) Patient: ARIK WARREN Study Date: 03/02/2018 Page 1 of 2 09:55 AM Continued Measurements: Chambers Valvular Assessment AV/MV Name Value Name Value LADs: 5.5 cm MV DecTime: 183 m/s LADs Lon.4 cm MV E' Septal: 0.07 m/s LA Area: 27.9 cm2 MV E/E' Septal: 23.70 LA Volume: 76 ml MV E/E' Lateral: 16.40 LA Volume Index: 31.3 ml/m2 MV VTI: 36.40 cm RA Area: 21.0 cm2 Findings: Left Ventricle: Normal size left ventricle. Mild concentric LV hypertrophy. Low normal left ventricular systolic function. EF is 54 %. There is paradoxic septal motion suggestive of bundle branch block, paced cardiac rhythm, or prior cardiac surgery. Right Ventricle: Normal size right ventricle. Normal RV function. Left Atrium: The left atrium is normal in size. Right Atrium: The right atrium is normal in size. Mitral Valve: There is no mitral valve regurgitation. No mitral stenosis is present. An annuloplasty ring is noted in the mitral valve position. Aortic Valve: The aortic valve is normal in appearance and function. There is no significant aortic valve regurgitation. No aortic valve stenosis is present. Tricuspid Valve: There is a tricuspid valve ring. No TR or TS. Pulmonic Valve: The pulmonic valve is normal in appearance and function. There is no pulmonic regurgitation seen. Aorta: Not well seen due to shadowing. Pericardium: No pericardial effusion. No pleural effusion. Exam Comments: Technically difficult exam due to patient body habitus and recent valve surgery. Extreme shadowing noted in parasternal windows and no visualization of subcostal due to shadowing, difficult imaging, and tubes in place. Best window is apical. (No Signature Object) Patient: ARIK WARREN Study Date: 03/02/2018 Page 2 of 2 09:55 AM [id number]
[2018-03-02] MEDS ORDERED: WARFARIN SODIUM 5 MG TAB PO ONE (16:00)
[2018-03-03] MEDS: HEPARIN 5,000 UNIT/0.5 ML SYR SC SCH ×3 (05:54→22:05)
[2018-03-03 06:47] LABS: INR 1.22 (0.83-1.16); PROTIME(PATIENT) 15.6 SEC (12.0-15.0)
--- NOTE | 2018-03-03 07:22 | SOAPPROG ---
PAPO Progress Note Assessment/Plan: POD #3: MV annuloplasty with #32 Physio ring, TV annuloplasty with #32 David MC3 ring, Kent-Maze 4 Mod-severe MR and mod TR s/p MV and TV annuloplasties - CTs to be removed today - Thromboprophylaxis as per CM 4 Long-standing persistent atrial fibrillation s/p Kent-Maze IV - Post-op JR now in SR - BB and amiodarone started for AF prophylaxis - Pacing wires to be removed - Thromboprophylaxis switched from Xarelto to Coumadin with INR goal 2-3, duration as per protocol Acute blood loss anemia - Stable without the need for transfusions DM 2 (HgbA1c 7.4%) with post-op stress hyperglycemia - Continue ISS - Metformin restarted DVT prophylaxis - SCDs/heparin SQ Disposition - Home Wednesday without services Subjective: Denies pain/SOB. Objective: Vital Signs Temp Pulse Resp BP Pulse Ox 36.8 C 68 18 116/68 96 03/03/18 04:00 03/03/18 04:00 03/03/18 04:00 03/03/18 04:00 03/03/18 04:00 Laboratory Results 03/02/18 07:40 03/02/18 07:40 03/02/18 03/03/18 03/04/18 05:59 05:59 05:59 Intake Total 2378 763 400 Output Total 1370 2325 Balance 1008 -1562 400 PT 15.6 SEC (12.0-15.0) H 03/03/18 05:25 INR 1.22 (0.83-1.16) H 03/03/18 05:25 Physical Exam - Physical Exam General Appearance: WD/WN, alert, no apparent distress EENT: No scleral icterus (R), No scleral icterus (L) Neck: normal inspection Respiratory: No respiratory distress Cardiac/Chest: regular rate, rhythm Abdomen: non-tender, soft, No distended Skin: normal color, warm/dry Extremities: pedal edema Neuro/Psych: no motor/sensory deficits, alert, normal mood/affect, oriented x 3 ICD10 Worksheet Patient Problems: Problems Problem Status Onset S/P ablation of atrial fibrillation Acute S/P tricuspid valve repair Acute Status post mitral valve repair Acute Severe mitral regurgitation Acute Chronic anticoagulation Chronic Diastolic congestive heart failure, NYHA class 2 Chronic Nonobstructive atherosclerosis of coronary artery Chronic JACOB on CPAP Chronic Paroxysmal atrial fibrillation Chronic Secondary tricuspid regurgitation Chronic Type 2 diabetes mellitus Chronic
[2018-03-03] MEDS: INSULIN LISPRO 100 UNIT/ML SC SCH ×3 (08:55→17:58)
[2018-03-03] MEDS: POTASSIUM CL 20 MEQ TAB PO SCH ×2 (08:56→14:57)
[2018-03-03] MEDS: metFORMIN HCL 850 MG TAB PO SCH ×2 (08:56→17:57)
[2018-03-03] MEDS: FUROSEMIDE 40 MG/4 ML VIAL IVP SCH ×2 (08:56→14:58)
[2018-03-03] MEDS: MULTIVITAMINS 1 EACH TAB PO SCH (08:57)
[2018-03-03] MEDS: CHOLECALCIFEROL VIT D3 2,000 UNITS TAB/CAP PO SCH (08:57)
[2018-03-03] MEDS: CARVEDILOL 3.125 MG TAB PO SCH ×2 (08:57→17:57)
[2018-03-03] MEDS: ALLOPURINOL 100 MG TAB PO SCH (08:57)
[2018-03-03] MEDS: AMIODARONE HCL 200 MG TAB PO SCH ×2 (08:57→22:05)
[2018-03-03] MEDS: PANTOPRAZOLE SODIUM 40 MG TAB PO SCH (08:57)
[2018-03-03] MEDS: ASPIRIN 81 MG CHEWABLE TAB PO SCH (08:57)
[2018-03-03] MEDS: SENNOSIDES/DOCUSATE SODIUM TAB PO SCH (08:58)
[2018-03-03] MEDS: FERROUS SULFATE 325 MG TAB PO SCH (08:58)
[2018-03-03] MEDS ORDERED: WARFARIN SODIUM 7.5 MG TAB PO ONE (16:00)
[2018-03-03] MEDS ORDERED: SENNOSIDES/DOCUSATE SODIUM TAB PO PRN (21:00)
[2018-03-04] MEDS: HEPARIN 5,000 UNIT/0.5 ML SYR SC SCH (05:56)
[2018-03-04 06:35] LABS: INR 1.21 (0.83-1.16); PROTIME(PATIENT) 15.5 SEC (12.0-15.0)
--- NOTE | 2018-03-04 07:42 | SOAPPROG ---
SOAP Progress Note Assessment/Plan: Assessment: POD#4 MV annuloplasty with #32 Physio ring, TV annuloplasty with # 32 David MC3 ring, Kent-Maze 4 Mod-severe MR and mod TR s/p MV and TV annuloplasties - CTs and TCPW out - Thromboprophylaxis as per CM 4 Long-standing persistent atrial fibrillation s/p Kent-Maze IV - Post-op JR evolving into SR - BB and amiodarone started for AF prophylaxis - Thromboprophylaxis switched from Xarelto to Coumadin with INR goal 2-3, duration as per protocol Acute blood loss anemia - Stable without the need for transfusions - DVT prophylaxis w SCDs/heparin SQ DM 2 (HgbA1c 7.4%) with post-op stress hyperglycemia - Metformin restarted w min SSI correctional needs. Plan: Ok for discharge home without services. Instructions re diet, meds, activity, wound care, and f/u to be reviewed. 03/04/18 07:42 Subjective: Feels great. Ready for home. Objective: Vital Signs Temp Pulse Resp BP Pulse Ox 37.1 C 66 16 120/73 95 03/04/18 04:00 03/04/18 04:00 03/04/18 04:00 03/04/18 04:00 03/04/18 04:00 Laboratory Results 03/02/18 07:40 03/04/18 05:50 03/03/18 03/04/18 03/05/18 05:59 05:59 05:59 Intake Total 763 2010 150 Output Total 2325 1900 Balance -1562 110 150 PT 15.5 SEC (12.0-15.0) H 03/04/18 05:50 INR 1.21 (0.83-1.16) H 03/04/18 05:50 Cardioresp status stable. Holding SR. Off O2. Within 1 kg admit wt. INR yet to rise. Physical Exam - Physical Exam General Appearance: alert, no apparent distress Respiratory: lungs clear Cardiac/Chest: regular rate, rhythm, other (Sternum grossly stable. Sternotomy and CT sites healing well.) Abdomen: non-tender, soft Skin: warm/dry Extremities: swelling (1+ dependent) ICD10 Worksheet Patient Problems: Problems Problem Status Onset S/P ablation of atrial fibrillation Acute S/P tricuspid valve repair Acute Status post mitral valve repair Acute Severe mitral regurgitation Acute Chronic anticoagulation Chronic Diastolic congestive heart failure, NYHA class 2 Chronic Nonobstructive atherosclerosis of coronary artery Chronic JACOB on CPAP Chronic Paroxysmal atrial fibrillation Chronic Secondary tricuspid regurgitation Chronic Type 2 diabetes mellitus Chronic
[2018-03-04 07:59] VITALS: BP 110/70
[2018-03-04] MEDS: metFORMIN HCL 850 MG TAB PO SCH (08:31)
[2018-03-04] MEDS: ASPIRIN 81 MG CHEWABLE TAB PO SCH (08:31)
[2018-03-04] MEDS: ALLOPURINOL 100 MG TAB PO SCH (08:31)
[2018-03-04] MEDS: MULTIVITAMINS 1 EACH TAB PO SCH (08:32)
[2018-03-04] MEDS: CHOLECALCIFEROL VIT D3 2,000 UNITS TAB/CAP PO SCH (08:32)
[2018-03-04] MEDS: PANTOPRAZOLE SODIUM 40 MG TAB PO SCH (08:32)
[2018-03-04] MEDS: FERROUS SULFATE 325 MG TAB PO SCH (08:33)
[2018-03-04] MEDS: CARVEDILOL 3.125 MG TAB PO SCH (08:33)
[2018-03-04] MEDS ORDERED: FUROSEMIDE 40 MG TAB PO SCH (09:00)
[2018-03-04] MEDS ORDERED: AMIODARONE HCL 200 MG TAB PO SCH (09:00)
[2018-03-04] MEDS ORDERED: POTASSIUM CL 20 MEQ TAB PO SCH (09:00)
[2018-03-04] MEDS ORDERED: WARFARIN SODIUM 7.5 MG TAB PO ONE (10:00)
--- NOTE | 2018-03-04 10:26 | PDDCSUM ---
Discharge Summary Discharge Summary: DATE OF ADMISSION: 02/28/18 DATE OF DISCHARGE: 03/04/18 DISPOSITION: Home, self-care PRINCIPAL ADMISSION DIAGNOSES: 1. Barlows mitral valve with bileaflet prolapse and severe regurgitation 2. Secondary tricuspid valve regurgitation 3. Persistent atrial fibrillation PRINCIPAL DISCHARGE DIAGNOSES: 1. Status post mitral valve annuloplasty 2. Status post tricuspid valve annuloplasty 3. Status post Kent-Maze IV procedure with clip exclusion of the left atrial appendage 4. Acute expected blood loss anemia HISTORY OF PRESENT ILLNESS: 62 yo male with increasing frequency of PAF, progressive MR, progressive TR, declining LVEF and class II diastolic CHF admitted for elective valvular repair and AF ablation. PERTINENT PAST MEDICAL HISTORY: Type 2 diabetes, HTN, JACOB on CPAP, chronic anticoagulation on Xarelto, nephrolithiasis MEDICATIONS ON ADMISSION: ASA 325 mg daily, Xarelto 10 mg daily, Vit D3 2,000 units daily, MVI once daily , Protonix 40 mg daily, Metformin 850 mg BID, Losartan 50 mg daily, Coreg 6.25 mg BID, Ferrous sulfate 325 mg daily, Allopurinol 100 mg daily, HCTZ 12.5 mg daily, Potassium Citrate 15 meq BID, Viagra 100 mg daily prn ALLERGIES/SENSITIVITIES: NKDA CONSULTANTS: none PROCEDURES/IMAGIN/7 (Elliot): Mitral valve annuloplasty with a 32 mm David Phsyio ring. Tricuspid valve annuloplasty with a 32 mm David MC3 ring. Kent-Maze IV procedure employing cryothermy and bipolar radiofrequency ablation and AtriClip exclusion of the left atrial appendage. 03/02 (Karen): Transthoracic echocardiogram ABBREVIATED HOSPITAL COURSE BY ACTIVE PROBLEM LIST: 1. Sx severe MR - Amenable to ring annuloplasty. Antithrombotic prophylaxis as per Maze. 2. Secondary TR - Amenable to ring annuloplasty. Antithrombotic prophylaxis as per Maze. 3. Chronic dCHF - Off CPB without inotropic support. Moderate volume overload actively diuresed with stable renal fx. Staggered reintro of antiHTN/heart failure meds. Insufficient BP for ARB. 4. Persistent atrial fibrillation/chronically anticoagulated with Xarelto - SR restored with Kent-Maze IV. AF prophylaxis with low dose amiodarone x 1 mo. Adjunctive BB escalated as tolerated. Thromboprophylaxis switched to Coumadin with INR goal 2-3, duration as per Maze protocol. 5. Acute expected blood loss anemia - Stable. No need for transfusions. 6. DM2, controlled - Postop hyperglycemia managed with insulin gtt, transitioning to Metformin and SSI. Min correctional needs and monitoring suspended. DISCHARGE CLINICAL INFORMATION: Sternum grossly stable. Sternotomy CDI, sutured, +Dermabond. HR 60s-70s. SBP 110s-120s. SpO2 95% RA. Wt 1 kg above admission at 117.9 kilos. Hgb 11.6, HCT 34.1, Plt 111, Na 139, K 3.9, Cr 0.8 Coumadin flowsheet: Date INR mg 03/01 1.32 2.5 03/02 1.22 5 03/03 1.22 7.5 03/04 1.21 7.5 DISCHARGE MEDICATIONS: As on admission with the following adjustments: 1. Hold Xarelto 2. Hold Losartan 3. Hold HCTZ 4. Hold potassium citrate 5. Decrease ASA to 81 mg while on Coumadin 6. Decrease Coreg to 3.125 mg BID NEW prescriptions: 1. Amiodarone 200 mg daily x 1 month. 2. Lasix 40 mg daily until back to baseline weight. 3. Klor-Con 10 meq daily with lasix 4. Coumadin 7.5 mg daily or as directed by INR/anticoagulation clinic. 5. Wren 5/325 one tab q 4-6 hrs prn incisional discomfort. FOLLOW UP APPOINTMENTS: 1. CV surgery: with Dr Zarate at [facility] on 03/15 at 9:30 am. 2. Cardiology: with Dr De La Rosa at [facility] within 4-6 weeks. Appointment to be established during surgical visit. FOLLOW UP TESTIN. INR at [facility] on 03/07 at 1:15 pm. 2. CXR prior to surgical appointment.
[2018-03-04] MEDS ORDERED: PNEUMOCOCCAL 0.5ML VACCINE VIAL IM ONE (13:33)
== END 2018-03-04 13:54 | disposition home or self-care (01) | DRG 220 ==
LOC: F2W 07:47 → UNDOADMIN 07:47 → F3N 02-28 08:53 → F2N 02-28 10:51 → F2W 03-01 17:00
PROVIDERS: ADMIT Thoracic Surgery (Cardiothoracic Vascular Surgery); ATTEND Thoracic Surgery (Cardiothoracic Vascular Surgery)
PROC: 5A1221Z Performance of Cardiac Output, Continuous (ICD-10-PCS; principal; 2018-02-28 11:00)
PROC: 02580ZZ Destruction of Conduction Mechanism, Open Approach (ICD-10-PCS; principal; 2018-02-28 11:00)
PROC: 02UG08Z Supplement Mitral Valve with Zooplastic Tissue, Open Approach (ICD-10-PCS; principal; 2018-02-28 11:00)
PROC: 02UJ0JZ Supplement Tricuspid Valve with Synthetic Substitute, Open Approach (ICD-10-PCS; principal; 2018-02-28 11:00)
DX: I34.0 Nonrheumatic mitral (valve) insufficiency (principal); I07.1 Rheumatic tricuspid insufficiency; I48.1 Persistent atrial fibrillation; D62 Acute posthemorrhagic anemia; E11.9 Type 2 diabetes mellitus without complications; K21.9 Gastro-esophageal reflux disease without esophagitis; I10 Essential (primary) hypertension; E29.1 Testicular hypofunction; G47.33 Obstructive sleep apnea (adult) (pediatric)
CPT/HCPCS: 82947-QW; 86870-90; 97116-GP; 97161-GP; 97165-GO; 97530-GP; 97535-GO; 99001-90; J0153; J0282; J0330; J0690; J1170; J1265; J1644; J1815; J1885; J1940; J2001; J2150; J2250; J2260; J2370; J2704; J2720; J2930; J3010; J3475; J7060; P9041

== ENCOUNTER 2018-02-25 07:52 | Day surgery (SDC) | payer OTHER ==
[2018-02-25] MEDS ORDERED: NS 1,000 ML IV ONE (07:55)
[2018-02-25] MEDS ORDERED: FAMOTIDINE 20 MG TAB PO ONE (07:55)
[2018-02-25] MEDS ORDERED: DIAZEPAM 5 MG TAB PO ONE (07:55)
[2018-02-25] MEDS ORDERED: diphenhydrAMINE 25 MG CAP PO ONE ×2 (07:55→08:33)
[2018-02-25] MEDS ORDERED: ASPIRIN EC 325 MG TAB PO ONE ×2 (07:55→08:34)
--- NOTE | 2018-02-25 08:19 | CPEKG ---
Heart Rate: 62 RR Interval: 968 P-R Interval: 156 QRSD Interval: 92 QT Interval: 388 QTC Interval: 394 P [place]: 62 QRS [place]: 65 T Wave [place]: 8 EKG Severity - NORMAL ECG - EKG Impression: SINUS RHYTHM EKG Impression: NON-SPECIFIC ST DEPRESSION Electronically Signed By: Jerardo Starr 25-Feb-2018 11:21:17
--- NOTE | 2018-02-25 08:26 | PDPROPOC ---
Sedation Plan of Care Sedation Plan of Care: mental status noted, patient educated of risks, benefits , alternatives, patient can tolerate sedation ASA Classification: ASA 2 Planned drugs: fentanyl, midazolam Mallampati Score: Class 2 Mallampati Reference Image: Patient passed 3-3-2 rule?: Yes
[2018-02-25] MEDS ORDERED: fentaNYL 100 MCG/2 ML INJ ONE ×2 (08:31→09:21)
[2018-02-25] MEDS ORDERED: MIDAZOLAM 2 MG/2 ML VIAL ONE (08:31)
[2018-02-25] MEDS ORDERED: IOPAMIDOL (ISOVUE-370) 150 ML BTL IV ONE (08:31)
[2018-02-25] MEDS ORDERED: LIDOCAINE 1% 300 MG/30 ML SDV ONE (08:31)
[2018-02-25] MEDS ORDERED: FAMOTIDINE 20 MG TAB ONE (08:34)
[2018-02-25] MEDS ORDERED: DIAZEPAM 5 MG TAB ONE (08:34)
[2018-02-25 08:44] LABS: PLATELET COUNT 155 10^3/uL (150-400)
[2018-02-25 09:03] LABS: INR 1.09 (0.83-1.16); PROTIME(PATIENT) 14.3 SEC (12.0-15.0)
[2018-02-25] MEDS ORDERED: HYDROCODONE/APAP 5/325 TAB PO PRN (09:43)
[2018-02-25] MEDS ORDERED: ONDANSETRON 4 MG/2 ML VIAL IVP PRN (09:43)
[2018-02-25] MEDS ORDERED: ATROPINE SULFATE 1 MG/10 ML SYR IVP PRN (09:43)
[2018-02-25] MEDS ORDERED: OXYCODONE/APAP 5/325 TAB PO PRN (09:43)
--- NOTE | 2018-02-25 11:13 | CPIP ---
[f rep st] INVASIVE CARDIAC PROCEDURE DATE OF PROCEDURE: 02/25/2018 INDICATIONS FOR PROCEDURE: Severe mitral regurgitation, preoperative catheterization. PROCEDURE: 1. Nonselective right groin sheathogram. 2. 7-[place]izen [place] sheath right common femoral vein. 3. Esmond-Linda catheterization. 4. Bilateral selective coronary angiography. 5. Left heart catheterization. 6. Left angiogram. HISTORY: Briefly, this is a 62-year-old male with history of worsening shortness of breath. The pat ient was have found to have severe mitral valve regurgitation as an outpatient and was evaluated for open-heart, mitral valve repair and Maze procedure. DESCRIPTION OF PROCEDURE: After informed consent, the patient was brought to [facility] where the right groin was prepped and draped in a sterile fashion. Using lidocaine, a short 6-Fren ch sheath placed in the right femoral artery and verified angiographically. A 7-[place] sheath placed in the right common femoral vein. Esmond-Linda catheter was advanced and wedge pressure was measured t o be a mean of 17, A-wave of 21, V-wave of 17. PA pressure was systolic 43, diastolic 18, mean of 28 , RV pressure systolic was 40, diastolic was 6, end of 13. RA pressure was mean of 12, A-wave of 16, V-wave 12. Cardiac output was measured to be 4.8 by Guero with a cardiac index of 2.0. AO saturation was 96%. PA saturation was 66%. Esmond-Linda catheter was then removed. The JL4 catheter was then ad vanced to the left coronary artery. Images of the left coronary artery revealed normal left main. Le ft circumflex artery gave off a large marginal 1 proximally and terminated into what appeared to be a n LP less. This was a codominant circulation. The LAD had proximal 20% to 30% disease but no high-g rade stenosis. Distally, the LAD appeared to be widely patent. The LAD gave off a medium-sized diago nal artery in its mid body, which was healthy and free of disease. After images were obtained, the JL 4 catheter was removed. There was also please note a small ramus intermedius which was healthy and f ree of disease. After the images were obtained, the JL4 catheter was removed. The JR4 catheter was advanced to the right coronary artery. Images of the right coronary artery revealed a normal os. Mi d RCA had tubular 20% disease distally. The RPDA appeared to be widely patent. After images were ob tained, the JR4 catheter was removed wire. The pigtail catheter was advanced to the left v entricle. LVEDP is 22 mmHg. Left ventriculogram obtained in the BAKER position showed an EF of 50% wit h no wall motion abnormalities. There did appear to be evidence of a prolapsing mitral valve as well on the ventriculogram. There was no pull-back range between the LV and aorta. Pigtail catheter was r emoved over an 0.035 wire. Right groin was closed using 6-[place]izen [place] Angio-Seal. Venous sheath was close d with manual pressure. Patient tolerated the procedure well with no complications. IMPRESSION: 1. Mild nonobstructive coronary artery disease. 2. Normal pulmonic pressures. PLAN: The patient will plan for open heart surgery by Dr. Zarate next week. Further orders following clinical correlation. /[id number]/MODL
== END 2018-02-25 14:34 | disposition home or self-care (01) ==
LOC: FCATH 07:52
PROVIDERS: ATTEND Internal Medicine Cardiovascular Disease
PROC: B2111ZZ Fluoroscopy of Multiple Coronary Arteries using Low Osmolar Contrast (ICD-10-PCS; principal; 2018-02-25)
PROC: B2151ZZ Fluoroscopy of Left Heart using Low Osmolar Contrast (ICD-10-PCS; principal; 2018-02-25)
PROC: 4A023N7 Measurement of Cardiac Sampling and Pressure, Left Heart, Percutaneous Approach (ICD-10-PCS; principal; 2018-02-25)
DX: Z01.810 Encounter for preprocedural cardiovascular examination (principal); I34.0 Nonrheumatic mitral (valve) insufficiency; I36.1 Nonrheumatic tricuspid (valve) insufficiency; I25.10 Atherosclerotic heart disease of native coronary artery without angina pectoris; I48.0 Paroxysmal atrial fibrillation; E11.9 Type 2 diabetes mellitus without complications; K21.9 Gastro-esophageal reflux disease without esophagitis; I10 Essential (primary) hypertension; G47.33 Obstructive sleep apnea (adult) (pediatric); E66.9 Obesity, unspecified; Z68.34 Body mass index [BMI] 34.0-34.9, adult; I51.7 Cardiomegaly; I77.9 Disorder of arteries and arterioles, unspecified; Z79.01 Long term (current) use of anticoagulants; Z79.84 Long term (current) use of oral hypoglycemic drugs; Z87.442 Personal history of urinary calculi
CPT/HCPCS: C1760; J1644; J2250; J3010; Q9967

== ENCOUNTER → 2018-03-15 | Outpatient (CLI) | payer OTHER | LOC: FIMAGING 08:31 | PROVIDERS: ATTEND Thoracic Surgery (Cardiothoracic Vascular Surgery) | DX: Z48.812 Encounter for surgical aftercare following surgery on the circulatory system (principal); Z95.4 Presence of other heart-valve replacement ==

== ENCOUNTER → 2018-04-18 | Outpatient (CLI) | payer OTHER | LOC: FIMAGING 08:55 | PROVIDERS: ATTEND Thoracic Surgery (Cardiothoracic Vascular Surgery) | DX: Z98.890 Other specified postprocedural states (principal); Z86.79 Personal history of other diseases of the circulatory system ==

== ENCOUNTER 2018-06-15 | Day surgery (SDC) | payer OTHER | END 2018-06-15 11:37 | disposition home or self-care (01) | PROC: 5A2204Z Restoration of Cardiac Rhythm, Single (ICD-10-PCS; principal; 2018-06-15) | DX: I48.0 Paroxysmal atrial fibrillation (principal); I10 Essential (primary) hypertension; I34.0 Nonrheumatic mitral (valve) insufficiency; G47.33 Obstructive sleep apnea (adult) (pediatric) | CPT/HCPCS: J2704 ==